=== PATIENT | female | born 1990 | race Caucasian/White ===

== ENCOUNTER → 2020-08-25 | Outpatient (CLI) | payer OTHER ==
[~2020-08-25] MED LIST: ALPR1TAB2 PO; ELAG150T PO; FAMO-119 PO; LISD60CA PO; MIRT-94 PO; PANT40TA2 PO; PREG100C PO; PREG50CA2 PO; TMSL.4C PO; ZOLP12.5 PO
--- NOTE | 2020-08-25 13:40 | Diagnostic Imaging Report ---
EXAMINATION: Supine abdomen at 1:15 p.m. INDICATION: Right ureteral stone. Two supine views were obtained. There are no prior studies available for comparison. FINDINGS: Reportedly, there is a clinical concern regarding a calculus in the right ureter. There is a small 3 mm calcific density lying just to the right of midline in the low pelvis. This could be a stone within the distal right ureter. If previous exams are available, they would be helpful for comparison. There is no other evidence for urolithiasis or for nephrolithiasis. The right kidney, however, is obscured by bowel gas and fecal material. There is no acute abnormality of the abdomen noted. IMPRESSION: 1. There is a small calcific density low in the pelvis on the right. This may represent a ureteral stone. If there are previous studies available for comparison, they would be helpful. 2. There is no acute abnormality noted otherwise. Dictated by: Dictated on workstation # [id number]
== END ==
LOC: RAD 12:53
PROVIDERS: ATTEND Urology
DX: N20.1 Calculus of ureter (principal)
CPT/HCPCS: 74018

== ENCOUNTER 2020-08-26 06:17 | Outpatient (CLI) | payer OTHER ==
[~2020-08-26] VITALS: Ht 162.6 cm; Wt 111.4 kg
[2020-08-26] MEDS ORDERED: TMSL.4C PO (09:21)
[2020-08-26] MEDS ORDERED: PREG100C PO (09:21)
[2020-08-26] MEDS ORDERED: PANT40TA2 PO (09:21)
[2020-08-26] MEDS ORDERED: PREG50CA2 PO (09:21)
[2020-08-26] MEDS ORDERED: FAMO-119 PO (09:21)
[2020-08-26] MEDS ORDERED: MIRT-94 PO (09:21)
[2020-08-26] MEDS ORDERED: LISD60CA PO (09:21)
[2020-08-26] MEDS ORDERED: ELAG150T PO (09:21)
[2020-08-26] MEDS ORDERED: ZOLP12.5 PO (09:21)
[2020-08-26] MEDS ORDERED: ALPR1TAB2 PO (09:22)
== END 2020-08-26 10:14 | disposition home or self-care (01) ==
LOC: PREOP 06:17
PROVIDERS: ATTEND Urology
DX: Z01.818 Encounter for other preprocedural examination (principal)

== ENCOUNTER 2020-08-27 06:06 | Day surgery (SDC) | payer OTHER ==
[2020-08-27] VITALS (10 sets, daily range): BP systolic 101–130; BP diastolic 52–92
[~2020-08-27] VITALS: Ht 162 cm; Wt 111.4 kg
[2020-08-27] MEDS: LACTATED RINGERS 1,000 ML IV PRN ×2 (06:52→08:31)
[2020-08-27] MEDS ORDERED: cefTRIAXone 1,000 MG VIAL ONE (06:57)
[2020-08-27] MEDS ORDERED: WATER (STERILE) FOR INJECTION 10 ML ONE (06:58)
[2020-08-27] MEDS ORDERED: FAMOTIDINE 20MG/2ML IV (PEPCID) IVP ONE (07:00)
[2020-08-27] MEDS ORDERED: ONDANSETRON 4 MG/2 ML (SDV) Z0FRAN IVP ONE (07:00)
[2020-08-27] MEDS ORDERED: cefTRIAXone 1,000 MG in WATER (STERILE) FOR INJECTION 10 ML IV ONE (07:00)
[2020-08-27] MEDS ORDERED: SCOPOLAMINE 1.5 MG (TRANSDERM-SCOP) PATCH TD ONE (07:00)
[2020-08-27] MEDS ORDERED: FAMOTIDINE 20MG/2ML IV (PEPCID) ONE (07:04)
[2020-08-27] MEDS ORDERED: ONDANSETRON 4 MG/2 ML (SDV) Z0FRAN ONE ×2 (07:04→07:06)
[2020-08-27] MEDS ORDERED: SCOPOLAMINE 1.5 MG (TRANSDERM-SCOP) PATCH ONE (07:04)
[2020-08-27] MEDS ORDERED: MIDAZOLAM 2 MG/2 ML (VERSED) VIAL ONE (07:06)
[2020-08-27] MEDS ORDERED: fentaNYL INJ 100 MCG/2 ML AMP ONE ×2 (07:06→09:05)
[2020-08-27] MEDS ORDERED: proPOfol 200 MG/20 ML (DIPRIVAN) VIAL IV ONE (07:06)
[2020-08-27] MEDS ORDERED: NEOSTIGMINE 3 MG/3 ML VIAL ONE (07:06)
[2020-08-27] MEDS ORDERED: GLYCOPYRROLATE 0.2 MG/ML (ROBINUL) 2 ML VIAL ONE (07:06)
[2020-08-27] MEDS ORDERED: LIDOCAINE PF 2% 5 ML (XYLOCAINE) VIAL ONE (07:06)
[2020-08-27] MEDS ORDERED: ROCURONIUM 10 MG/ML 5 ML SYRINGE IV ONE (07:06)
[2020-08-27] MEDS ORDERED: PROPOFOL INJECTION 50 ML IV ONE (07:07)
--- NOTE | 2020-08-27 07:19 | Progress Note-Pre Operative ---
Pre-Operative Progress Note H&P Reviewed The H&P was reviewed, patient examined and no changes noted. Date Seen by Provider: Aug 27, 2020 Time Seen by Provider: 07:18 Date H&P Reviewed: Aug 27, 2020 Time H&P Reviewed: 07:18 Pre-Operative Diagnosis: RT DISTAL URETERAL STONE JUDY HACKETT MD Aug 27, 2020 07:18
--- NOTE | 2020-08-27 07:19 | Progress Note-Post Operative ---
Post-Operative Progess Note Surgeon (s)/Manager Card (s) Surgeon JUDY HACKETT MD Manager Card: NONE Pre-Operative Diagnosis RT DISTAL URETERAL STONE Post-Operative Diagnosis SAME Procedure & Operative Findings Date of Procedure 08/27/20 Procedure Performed/Findings CYSTOSCOPY AND RT URETEROSCOPY Anesthesia Type GENERAL Estimated Blood Loss Estimated blood loss (mL): NONE Specimens/Packing Specimens Removed NONE Packing: NONE JUDY HACKETT MD Aug 27, 2020 07:19
--- NOTE | 2020-08-27 07:20 | Discharge Inst-Urology ---
Discharge Inst-Urology Reconcile Patient Problems Problems Reviewed?: Yes Final Diagnosis RT DISTAL URETERAL STONE Patient Instructions/Follow Up Plan/Assessment/Instructions No appointment needed, see me PRN. Increase oral fluids for 48 hours and then as needed. Diet and Activity as tolerated. If questions or concerns contact your physician Or seek help at emergency department. JUDY HACKETT MD Aug 27, 2020 07:20
--- NOTE | 2020-08-27 07:21 | Diagnostic Imaging Report ---
INDICATION: History of kidney stones. Preoperative evaluation. COMPARISON: 08/25/2020 FINDINGS: 2 supine radiographic views of the abdomen were obtained. Small bowel loops are nondistended. There is no large collection of free intraperitoneal air. No unexpected radiopaque foreign bodies are seen. Note is again made of 2 to 3 mm calculus projecting over the right hemipelvis. Osseous structures show no gross acute abnormalities. IMPRESSION: 1. Stable exam of the abdomen as above. Dictated by: Dictated on workstation # [id number]
[2020-08-27] MEDS ORDERED: PROMETHAZINE INJ 25 MG/ML (PHENERGAN) AMP ONE (08:13)
[2020-08-27] MEDS ORDERED: morphine INJ 10 MG/ML 1ML (SYR OR VIAL) ONE (08:13)
[2020-08-27] MEDS ORDERED: morphine INJ 10 MG/ML 1ML (SYR OR VIAL) IVP ONE (08:15)
[2020-08-27] MEDS ORDERED: ONDANSETRON 4 MG/2 ML (SDV) Z0FRAN IVP PRN (08:15)
[2020-08-27] MEDS ORDERED: PROMETHAZINE INJ 25 MG/ML (PHENERGAN) AMP IVP ONE (08:15)
[2020-08-27] MEDS ORDERED: KETOROLAC 30 MG/ML VIAL ONE (08:24)
[2020-08-27] MEDS ORDERED: KETOROLAC 30 MG/ML VIAL IVP ONE (08:30)
[2020-08-27] MEDS ORDERED: fentaNYL INJ 100 MCG/2 ML AMP IVP ONE (08:30)
[2020-08-27] MEDS ORDERED: fentaNYL INJ 100 MCG/2 ML AMP IVP PRN (09:00)
--- NOTE | 2020-08-27 11:24 | Anesthesia-General Post-Op ---
General Patient Condition Mental Status/LOC: Same as Preop Cardiovascular: Satisfactory Nausea/Vomiting: Absent Respiratory: Satisfactory Pain: Controlled Complications: Absent Post Op Complications Complications None Follow Up Care/Instructions Patient Instructions None needed. Anesthesia/Patient Condition Patient Condition Patient was seen this morning after the procedure and she was doing well, stable vital signs, no apparent adverse anesthesia problems. She did have some minimal N/V after, however she stated that it was much better than previous anesthetics. HILDA VILLALPANDO DO Aug 27, 2020 11:24
--- NOTE | 2020-08-27 13:24 | OPERATIVE REPORT ---
DATE OF SERVICE: 08/27/2020 PREOPERATIVE DIAGNOSIS: Right distal ureteral stone. POSTOPERATIVE DIAGNOSIS: Right distal ureteral stone. OPERATION PERFORMED: Cystoscopy and right ureteroscopy. SURGEON: Refugio Hackett MD ANESTHESIA: General. COMPLICATIONS: None. DESCRIPTION OF PROCEDURE: Under satisfactory general anesthesia, the patient in lithotomy position, genitalia were prepped and draped in the usual sterile fashion. Cystoscope was introduced in the bladder, which was examined and completely normal. No foreign body, bladder stone visualized. No bladder tumor. Clear effluxes equal from both sides. Using the foroblique lens, I dilated the right ureteral orifice intramural portion to accommodate a 6.9 [place] semi-rigid ureteroscope. I went all the way up to the kidney back down twice and there were no stones, no evidence of a stone previously there and showed on fluoroscopy that the calcification that was presumed to be a stone by CT and/or a KUB was outside the ureter, probably a phlebolith. I removed the ureteroscope, reinserted the cystoscope to empty the bladder. The patient tolerated the procedure and anesthesia well and was sent to recovery room in stable condition. I explained to her mother that the possibility either that she did not have a stone to start with and that calcification seen by CAT scan and KUB as I mentioned is outside the ureter since also the CAT scan did not show any obstruction and her urinalysis at the office was negative. The second possibility would have been that she had a stone and she passed it, although I could not see any evidence of that endoscopically, but she has never strain her urine or given a strainer from the ER in [place] so that is another possibility that she has passed the stone few days ago and that is why there are no changes actually now, but that could not explain why she is having pain and nausea and vomiting, so I told her mother that if she continues to have those symptoms after today to check with her medical doctor, I presume Dr. Carcamo in [place] to check for other reasons likely GI tract including the gallbladder. Job ID: [id number] DocumentID: [id number] Dictated Date: 08/27/2020 08:12:25 Low Heel Builder Date: 08/27/2020 13:23:36 Dictated By: REFUGIO HACKETT MD
== END 2020-08-27 10:30 ==
LOC: SDC 06:06
PROVIDERS: ATTEND Urology
DX: N20.1 Calculus of ureter (principal); E66.01 Morbid (severe) obesity due to excess calories; J45.909 Unspecified asthma, uncomplicated; K21.9 Gastro-esophageal reflux disease without esophagitis; F90.9 Attention-deficit hyperactivity disorder, unspecified type; F41.9 Anxiety disorder, unspecified; Z79.899 Other long term (current) drug therapy; Z68.41 Body mass index [BMI] 40.0-44.9, adult; Z83.3 Family history of diabetes mellitus; Z80.0 Family history of malignant neoplasm of digestive organs
CPT/HCPCS: 74018; 76000; 84703; 87081

== ENCOUNTER 2021-06-30 12:17 | Observation (INO) | payer OTHER ==
[~2021-06-30] VITALS: Ht 162 cm; Wt 102.0 kg
[2021-06-30] MEDS ORDERED: NS IV 1000 ML 1,000 ML IV STA (12:46)
[2021-06-30] MEDS ORDERED: fentaNYL INJ 100 MCG/2 ML AMP IVP STA (12:46)
--- NOTE | 2021-06-30 12:51 | ED GI ---
General Chief Complaint: Abdominal/GI Problems Stated Complaint: N/V, ABD PAIN Nursing Triage Note: ARRIVED VIA AMB TO ROOM 08 WITH COMPLAINTS OF LEFT FLANK PAIN AND RIGHT LOWER ABD PAIN. STATES SHE WAS ADMITTED TO [facility] OVER THE WEEKEND FOR PYLONEPHRITIS. CONTINUES TO HAVE ABD PAIN, N/V. WAS TOLD TO COME TO THIS HOSPITAL EDY HACKETT IS HERE. Source of Information: Patient Exam Limitations: No Limitations (JOHNSON MADRID) History of Present Illness Date Seen by Provider: June 30, 2021 Time Seen by Provider: 12:48 Initial Comments Patient is a 30-year-old female with a history of PCOS, anxiety, PE, appendectomy, cholecystectomy, gastric bypass who presents ED for bilateral flank pain and lower belly pain. Symptoms started last . She states she was admitted to [facility] over the weekend for pyelonephritis. She was placed on oral Cipro as she states she was feeling some what better. She states over the past 2 days she has been continuously vomiting. She reports chills with a low-grade temperature. She reports sharp pain in her flank and lower abdomen. No urinary symptoms. Patient is currently on a blood thinner for her PE. Denies chest pain, cough or shortness of breath, headache, sore throat. Was recommended by her primary care physician to come to the ED for further evaluation. (JOHNSON MADRID) Allergies and Home Medications Allergies Coded Allergies: dicyclomine (Verified Allergy, Severe, AMS, 06/30/21) metoclopramide (Verified Allergy, Severe, Anaphylaxis, 08/27/20) "BODY LOCKS UP TO WHERE I CAN'T BREATHE." hydroxyzine (Verified Allergy, Unknown, 06/30/21) prochlorperazine (Verified Allergy, Unknown, 06/30/21) red dye (Verified Allergy, Unknown, Itching, 08/27/20) ITCHING AND RASH yellow dye (Verified Allergy, Unknown, Anaphylaxis, 08/27/20) Uncoded Allergies: IV CONTRAST (Allergy, Severe, ITCHING, 06/30/21) Patient Home Medication List Home Medication List Reviewed: Yes (JOHNSON MADRID) Acetaminophen (Tylenol Extra Strength) 500 Mg Tablet, 1,000 MG PO TID, (Reported) Entered as Reported by: JESSA PAZ on 07/01/211228 Last Action: Reviewed Alprazolam (Alprazolam) 1 Mg Tablet, 1 MG PO DAILY PRN for ANXIETY, (Reported) Entered as Reported by: JESSA PAZ on 07/01/211228 Last Action: Reviewed Apixaban (Eliquis) 5 Mg Tablet, 2.5 MG PO BID, (Reported) Entered as Reported by: JESSA PAZ on 07/01/211228 Last Action: Reviewed Ergocalciferol (Vitamin D2) (Vitamin D2) 1,250 Mcg (89951 Unit) Capsule, 1,250 MCG PO , (Reported) Entered as Reported by: BASSEM CHAWLA on 06/30/211948 Last Action: Reviewed Escitalopram Oxalate (Escitalopram Oxalate) 10 Mg Tablet, 10 MG PO DAILY, (Reported) Entered as Reported by: JESSA PAZ on 07/01/211228 Last Action: Reviewed Esomeprazole Magnesium (Esomeprazole Magnesium) 40 Mg Capsule.dr, 40 MG PO DAILY, (Reported) Entered as Reported by: JESSA PAZ on 07/01/211228 Last Action: Reviewed Lisdexamfetamine Dimesylate (Vyvanse) 60 Mg Capsule, 60 MG PO DAILY, (Reported) Entered as Reported by: NICK DORANTES on 08/26/20 0921 Last Action: Reviewed Ondansetron (Ondansetron Odt) 4 Mg Tab.rapdis, 4 MG PO Q6H Prescribed by: WILL DUVALL on 07/01/21 1753 Oxycodone HCl (Oxycodone HCl) 5 Mg Tablet, 5 MG PO Q6H PRN for PAIN-SEVERE (8- 10) Prescribed by: WILL DUVALL on 07/03/21 1541 Promethazine HCl (Promethazine Tablet) 25 Mg Tablet, 25 MG PO Q6H PRN for NAUSEA/VOMITING Prescribed by: WILL DUVALL on 07/03/21 1540 Scopolamine (Transderm-Scop) 1 Mg/3 Day Patch.td72, 1 EACH TD Q72H Prescribed by: WILL DUVALL on 07/03/21 1540 Zolpidem Tartrate (Ambien) 10 Mg Tablet, 10 MG PO HS, (Reported) Entered as Reported by: JESSA PAZ on 07/01/211228 Last Action: Reviewed Discontinued Medications Alprazolam (Xanax) 1 Mg Tablet, 1 MG PO DAILY PRN for ANXIETY, (Reported) Discontinued Reason: Duplicate Order Entered as Reported by: NICK DORANTES on 08/26/20921 Last Action: Discontinued Apixaban (Eliquis) 2.5 Mg Tablet, 2.5 MG PO BID, (Reported) Discontinued Reason: No Longer Taking Entered as Reported by: HELENA ARMSTRONG on 06/30/211817 Last Action: Discontinued Ciprofloxacin HCl (Ciprofloxacin HCl) 500 Mg Tablet, 500 MG PO BID, (Reported) Entered as Reported by: JESSA PAZ on 07/01/211228 Last Action: Reviewed Elagolix Sodium (Orilissa) 150 Mg Tablet, 150 MG PO HS, (Reported) Discontinued Reason: No Longer Taking Entered as Reported by: NICK DORANTES on 08/26/20920 Last Action: Discontinued Escitalopram Oxalate (Lexapro) 10 Mg Tablet, 10 MG PO DAILY, (Reported) Discontinued Reason: Duplicate Order Entered as Reported by: BASSEM CHAWLA on 06/30/211946 Last Action: Discontinued Esomeprazole Magnesium (Nexium 24Hr) 20 Mg Capsule.dr, 40 MG PO DAILY, (Reported) Discontinued Reason: Duplicate Order Entered as Reported by: BASSEM CHAWLA on 06/30/211946 Last Action: Discontinued Famotidine (Pepcid) 20 Mg Tablet, 20 MG PO HS, (Reported) Discontinued Reason: No Longer Taking Entered as Reported by: NICK DORANTES on 08/26/20920 Last Action: Discontinued Mirtazapine (Remeron) 30 Mg Tablet, 30 MG PO HS, (Reported) Discontinued Reason: No Longer Taking Entered as Reported by: NICK DORANTES on 08/26/20920 Last Action: Discontinued Pantoprazole Sodium (Protonix) 40 Mg Tablet.dr, 40 MG PO BID, (Reported) Discontinued Reason: No Longer Taking Entered as Reported by: NICK DORANTES on 08/26/20920 Last Action: Discontinued Pregabalin (Lyrica) 50 Mg Capsule, 50 MG PO DAILY, (Reported) Discontinued Reason: No Longer Taking Entered as Reported by: NICK DORANTES on 08/26/20920 Last Action: Discontinued Pregabalin (Lyrica) 100 Mg Capsule, 100 MG PO HS, (Reported) Discontinued Reason: No Longer Taking Entered as Reported by: NICK DORANTES on 08/26/20920 Last Action: Discontinued Tamsulosin HCl (Flomax) 0.4 Mg Cap, 0.4 MG PO HS, (Reported) Discontinued Reason: No Longer Taking Entered as Reported by: NICK DORANTES on 08/26/20920 Last Action: Discontinued Zolpidem Tartrate (Ambien Cr) 12.5 Mg Tab.mphase, 12.5 MG PO HS PRN for SLEEP, (Reported) Discontinued Reason: No Longer Taking Entered as Reported by: NICK DORANTES on 08/26/20920 Last Action: Discontinued Zolpidem Tartrate (Ambien) 10 Mg Tablet, 5 MG PO 0000 PRN for INSOMNIA, (Reported) Entered as Reported by: HELENA ARMSTRONG on 06/30/211816 Last Action: Reviewed Review of Systems Review of Systems Constitutional: No chills, No diaphoresis, No malaise, No weakness EENTM: No Eye Pain, No Mouth Pain Respiratory: Denies Cough, Denies Orthopnea Cardiovascular: Denies Chest Pain, Denies Edema Gastrointestinal: Abdominal Pain; Denies Constipated, Denies Diarrhea; Nausea, Vomiting Genitourinary: Denies Burning, Denies Discharge, Denies Flank Pain; Pain; Denies Urgency Musculoskeletal: back pain; No joint pain Skin: No change in color, No change in hair/nails (JOHNSON MADRID) All Other Systems Reviewed Negative Unless Noted: Yes (JOHNSON MADRID) Past Ugkmxzh-Ejxczl-Lhlliz Hx Seasonal Allergies Seasonal Allergies: Yes (JOHNSON MADRID) Past Medical History Surgeries: Yes (GASTRIC SLEEVE, LEFT SHOULDER ) Abdominal, Section, Gallbladder, Orthopedic, Tonsillectomy, Tubal Ligation Respiratory: Yes Asthma Currently Using CPAP: No Currently Using BIPAP: No Cardiac: No Neurological: No Female Reproductive Disorders: Polycystic 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 oz. kg; 38.00 BMI Method: General Appearance: WD/WN, no apparent distress HEENT: PERRL/EOMI, normal ENT inspection, TMs normal, pharynx normal Neck: non-tender, full range of motion, supple Respiratory: chest non-tender, lungs clear, normal breath sounds, no respiratory distress Cardiovascular: regular rate, rhythm, no edema, no gallop, no JVD Gastrointestinal: normal bowel sounds, soft, no organomegaly, tenderness (Bilateral lower abdominal tenderness.) Extremities: normal range of motion, non-tender, normal inspection, no pedal edema Back: normal inspection, CVA tenderness (R), CVA tenderness (L) Neurologic/Psychiatric: 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 II-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 nml as tested, no motor/sensory deficits, alert, normal mood/affect, oriented x 3 Skin: normal color, warm/dry (JOHNSON MADRID) Progress/Results/Core Measures Results/Orders Lab Results Laboratory Tests Test 06/30/21 12:50 06/30/21 12:53 Range/Units Urine Color RED H Urine Clarity CLEAR Urine pH 8.0 5-9 Urine Specific [place] 1.015 L 1.016-1.022 Urine Protein TRACE H NEGATIVE Urine Glucose (UA) NEGATIVE NEGATIVE Urine Ketones NEGATIVE NEGATIVE Urine Nitrite NEGATIVE NEGATIVE Urine Bilirubin NEGATIVE NEGATIVE Urine Urobilinogen 1.0 < = 1.0 MG/DL Urine Leukocyte Esterase NEGATIVE NEGATIVE Urine RBC (Auto) 3+ H NEGATIVE Urine RBC TNTC H /HPF Urine WBC 0-2 /HPF Urine Squamous Epithelial Cells 0-2 /HPF Urine Crystals NONE /LPF Urine Bacteria NEGATIVE /HPF Urine Casts NONE /LPF Urine Mucus NEGATIVE /LPF Urine Culture Indicated NO Urine Test NEGATIVE NEGATIVE White Blood Count 6.5 4.3-11.0 10^3/uL Red Blood Count 4.96 3.80-5.11 10^6/uL Hemoglobin 13.5 11.5-16.0 g/dL Hematocrit 42 35-52 % Mean Corpuscular Volume 84 80-99 fL Mean Corpuscular Hemoglobin 27 25-34 pg Mean Corpuscular Hemoglobin Concent 32 32-36 g/dL Red Cell Distribution Width 14.9 H 10.0-14.5 % Platelet Count 303 130-400 10^3/uL Mean Platelet Volume 10.9 9.0-12.2 fL Immature Granulocyte % (Auto) 0 % Neutrophils (%) (Auto) 61 42-75 % Lymphocytes (%) (Auto) 31 12-44 % Monocytes (%) (Auto) 7 0-12 % Eosinophils (%) (Auto) 0 0-10 % Basophils (%) (Auto) 1 0-10 % Neutrophils # (Auto) 4.0 1.8-7.8 10^3/uL Lymphocytes # (Auto) 2.0 1.0-4.0 10^3/uL Monocytes # (Auto) 0.5 0.0-1.0 10^3/uL Eosinophils # (Auto) 0.0 0.0-0.3 10^3/uL Basophils # (Auto) 0.0 0.0-0.1 10^3/uL Immature Granulocyte # (Auto) 0.0 0.0-0.1 10^3/uL Sodium Level 142 135-145 MMOL/L Potassium Level 3.2 L 3.6-5.0 MMOL/L Chloride Level 102 98-107 MMOL/L Carbon Dioxide Level 28 21-32 MMOL/L Anion Gap 12 5-14 MMOL/L Blood Urea Nitrogen 5 L 7-18 MG/DL Creatinine 0.81 0.60-1.30 MG/DL Estimat Glomerular Filtration Rate 100 BUN/Creatinine Ratio 6 Glucose Level 97 70-105 MG/DL Calcium Level 10.1 8.5-10.1 MG/DL Corrected Calcium 8.5-10.1 MG/DL Total Bilirubin 1.0 0.1-1.0 MG/DL Aspartate Amino Transf (AST/SGOT) 18 5-34 U/L Alanine Aminotransferase (ALT/SGPT) 69 H 0-55 U/L Alkaline Phosphatase 112 40-136 U/L C-Reactive Protein High Sensitivity 0.10 0.00-0.50 MG/DL Total Protein 8.2 6.4-8.2 GM/DL Albumin 4.8 H 3.2-4.5 GM/DL Lipase 13 8-78 U/L Procalcitonin 0.12 H <0.10 NG/ML (YU REA DO) Vital Signs/I&O 06/30/21 12:30 Temp 36.3 Pulse 81 Resp 16 B/P (MAP) 131/96 (108) Pulse Ox 98 O2 Delivery Room Air (YU REA DO) Blood Pressure Mean: 108 Departure Communication (Admissions) Time/Spoke to Admitting Phy: 15:42 Patient will be admitted to Dr. Duvall for intractable vomiting (JOHNSON MADRID) Communication (PCP) Patient with a history of gastric bypass, cholecystectomy who presents ED for bilateral flank pain lower abdominal pain. Was recently admitted to [facility] for [facility]elonephritis. She was discharged over the weekend and started having similar type pain over the past 2 days. Has not been able to eat or drink secondary to abd pain and vomiting. Has bilateral flank pain and bilateral lower abdominal discomfort. Patient with stable vital signs. Multiple rounds of nausea medication without any improvement. Was given a liter of fluid and several rounds of pain medication without much improvement of her pain. CT of the pelvis showed a possible liver lesion containing fat needs further evaluation other torres unremarkable. Urinalysis with hematuria without evidence of infection. Discussed patient with Dr. Ryan her primary care physician. If not able to tolerate p.o. fluids recommend admission. Patient continued to vomit here in the ED. Patient will be admitted for intractable abdominal pain and vomiting. May be related to the Cipro that she has been taking for the UTI versus her complications of the gastric bypass. Discussed patient with Dr. Duvall who accepts patient at this time. (JOHNSON MADRID) Impression Primary Impression: Intractable vomiting Disposition: ADMITTED INPATIENT Condition: Critical Admissions Decision to Admit Reason: Admit from ER (General) Decision to Admit/Date: June 30, 2021 Time/Decision to Admit Time: 15:42 (JOHNSON MADRID) Departure-Patient Inst. Referrals: NITA RYAN MD (PCP/Family) Primary Care Physician Scripts Scopolamine (Transderm-Scop) 1 Mg/3 Day Patch.td72 1 EACH TD Q72H for 7 Days, #3 PATCH Prov: WILL DUVALL MD 07/03/21 Promethazine HCl (Promethazine Tablet) 25 Mg Tablet 25 MG PO Q6H PRN for NAUSEA/VOMITING for 5 Days, #15 TAB Prov: WILL DUVALL MD 07/03/21 Oxycodone HCl (Oxycodone HCl) 5 Mg Tablet 5 MG PO Q6H PRN for PAIN-SEVERE (8-10) for 5 Days, #10 TAB 0 Refills Prov: WILL DUVALL MD 07/03/21 Ondansetron (Ondansetron Odt) 4 Mg Tab.rapdis 4 MG PO Q6H for Nausea/Vomiting for 5 Days, #20 TAB Prov: WILL DUVALL MD 07/01/21 ATTENDING PHYSICIAN NOTE: I WAS PHYSICALLY PRESENT ER PHYSICIAN, BUT I WAS NOT INVOLVED IN ANY DECISION MAKING OR ANY CARE OF THIS PATIENT. (YU REA DO) JOHNSON MADRID June 30, 2021 12:51 YU REA DO July 05, 2021 02:26
[2021-06-30] MEDS ORDERED: IOHEXOL 350 MG/ML 100 ML (OMNIPAQUE 350) VIAL IV ONE (13:00)
[2021-06-30] MEDS ORDERED: HOLD METFORMIN - RECEIVED CONTRAST 20 ML VIAL IV SCH (13:00)
[2021-06-30] MEDS ORDERED: ONDANSETRON 4 MG/2 ML (SDV) Z0FRAN IVP ONE ×2 (13:00→13:45)
[2021-06-30] MEDS ORDERED: NS 100 ML (IVPB) BAG IV ONE (13:00)
[2021-06-30] MEDS ORDERED: CATHETER FLUSH 10 ML SYR IV PRN (13:00)
[2021-06-30 13:04] LABS: BASOPHILS % (AUTO) 1 % (0-10); EOSINOPHILS % (AUTO) 0 % (0-10); HEMATOCRIT 42 % (35-52); HEMOGLOBIN 13.5 g/dL (11.5-16.0); LYMPHOCYTES % (AUTO) 31 % (12-44); MEAN CORPUSCULAR HEMOGLOBIN 27 pg (25-34); MEAN CORPUSCULAR HGB CONC 32 g/dL (32-36); MEAN CORPUSCULAR VOLUME 84 fL (80-99); MEAN PLATELET VOLUME 10.9 fL (9.0-12.2); MONOCYTES # (AUTO) 0.5 10^3/uL (0.0-1.0); MONOCYTES % (AUTO) 7 % (0-12); NEUTROPHILS % (AUTO) 61 % (42-75); PLATELET COUNT 303 10^3/uL (130-400); WHITE BLOOD COUNT 6.5 10^3/uL (4.3-11.0)
[2021-06-30 13:04] LABS: BILIRUBIN,URINE NEGATIVE (NEGATIVE); CLARITY,URINE CLEAR; COLOR,URINE RED; GLUCOSE, URINE (UA) NEGATIVE (NEGATIVE); KETONES,URINE NEGATIVE (NEGATIVE); LEUKOCYTE ESTERASE ,URINE NEGATIVE (NEGATIVE); NITRITE,URINE NEGATIVE (NEGATIVE); PROTEIN,URINE TRACE (NEGATIVE)
[2021-06-30 13:20] LABS: ALBUMIN 4.8 GM/DL (3.2-4.5)
[2021-06-30 13:21] LABS: CHLORIDE 102 MMOL/L (98-107); POTASSIUM 3.2 MMOL/L (3.6-5.0); SODIUM 142 MMOL/L (135-145)
[2021-06-30 13:22] LABS: CALCIUM 10.1 MG/DL (8.5-10.1)
[2021-06-30 13:23] LABS: GLUCOSE 97 MG/DL (70-105); TOTAL PROTEIN 8.2 GM/DL (6.4-8.2)
[2021-06-30 13:23] LABS: BACTERIA,URINE NEGATIVE /HPF; RBC,URINE TNTC /HPF; SQUAMOUS EPITHELIAL CELL,UR 0-2 /HPF; WBC,URINE 0-2 /HPF
[2021-06-30 13:24] LABS: CARBON DIOXIDE 28 MMOL/L (21-32)
[2021-06-30 13:26] LABS: ALKALINE PHOSPHATASE 112 U/L (40-136)
[2021-06-30 13:27] LABS: CREATININE SERUM 0.81 MG/DL (0.60-1.30); GFR ESTIMATED 100
[2021-06-30 13:28] LABS: BUN/CREATININE RATIO 6
[2021-06-30 13:29] LABS: ALANINE AMINOTRANSFERASE 69 U/L (0-55)
[2021-06-30 13:30] LABS: LIPASE 13 U/L (8-78)
[2021-06-30] MEDS ORDERED: diphenhydrAMINE 50 MG/ML INJ (BENADRYL) IVP ONE (13:45)
[2021-06-30] MEDS ORDERED: morphine INJ 10 MG/ML 1ML (SYR OR VIAL) IVP ONE ×2 (13:45→16:15)
--- NOTE | 2021-06-30 13:58 | Diagnostic Imaging Report ---
PROCEDURE: CT abdomen and pelvis with contrast. TECHNIQUE: Multiple contiguous axial images were obtained through the abdomen and pelvis after administration of intravenous contrast. Auto Exposure Controls were utilized during the CT exam to meet ALARA standards for radiation dose reduction. All CT scans use one or more of the following dose optimizing techniques: automated exposure control, MA and/or KvP adjustment based on patient size and exam type or iterative reconstruction. DATE: June 30, 2021. COMPARISON: Abdominal radiographs August 27, 2020. INDICATION: 30-year-old female, left flank pain. Right lower quadrant pain. FINDINGS: The visualized portions of the lung bases are clear. The heart is not enlarged. There is no pericardial effusion. The liver is unremarkable in size and contour. There is a low-attenuation lesion in the liver near the ligamentum teres measuring 1.7 cm in size. Internal attenuation is 23 Hounsfield units. This potentially could relate to an area of focal fat, especially given the characteristic location. There is no additional identified liver lesion. The main, right, left portal veins are patent. The gallbladder surgically absent. There is no intrahepatic or extrahepatic bile duct dilation. The main pancreatic duct is not abnormally dilated. Unremarkable appearance of the pancreatic parenchyma. The spleen is normal in size. The adrenal glands are unremarkable. Unremarkable appearance of the renal parenchyma. The urinary collecting systems are not distended. There is no identified renal or ureteral stone. Urinary bladder is unremarkable. Limited CT assessment of the uterus and adnexa is unremarkable. The appendix is unremarkable. There are postoperative changes at the level of the stomach. There are postoperative changes of small bowel. The intestinal tract is not distended. There is no free intraperitoneal air. There is no drainable fluid collection. There is no sizable volume free pelvic fluid. There is no identified abnormally enlarged lymph node in the abdomen or pelvis which meets CT size criteria for adenopathy. There is no identified acute bony abnormality. There are degenerative changes of the spine. IMPRESSION: CT ABDOMEN AND PELVIS. 1. No identified acute abnormality in the abdomen or pelvis. 2. Low-attenuation lesion in the liver adjacent to the ligamentum teres which may relate to an area of focal fat, especially given the characteristic location. Dictated by: Dictated on workstation # [id number]
[2021-06-30] MEDS ORDERED: PROMETHAZINE INJ 25 MG/ML (PHENERGAN) AMP IVP ONE (15:00)
[2021-06-30] MEDS ORDERED: SCOPOLAMINE 1.5 MG (TRANSDERM-SCOP) PATCH TD ONE ×2 (15:45→18:00)
[2021-06-30] MEDS ORDERED: SCOPOLAMINE 1.5 MG (TRANSDERM-SCOP) PATCH ONE ×2 (15:57→17:54)
[2021-06-30] MEDS ORDERED: LACTATED RINGERS 1,000 ML IV ONE (17:54)
[2021-06-30] MEDS ORDERED: ACETAMINOPHEN 325 MG TABLET PO PRN (18:00)
[2021-06-30] MEDS ORDERED: ONDANSETRON 4 MG (ZOFRAN) ORAL DISSOLVE TAB PO PRN (18:00)
[2021-06-30] MEDS ORDERED: MELATONIN 3 MG TABLET PO PRN (18:00)
[2021-06-30] MEDS ORDERED: PROCHLORPERAZINE 10 MG/2ML INJ (COMPAZINE) IV PRN (18:00)
[2021-06-30] MEDS ORDERED: diphenhydrAMINE 25 MG TAB (BENADRYL) PO PRN (18:00)
[2021-06-30] MEDS ORDERED: polyethylene glycoL POWDER 17 GM (MIRALAX) PACK PO PRN (18:00)
[2021-06-30] MEDS ORDERED: ZOLP10TA PO (18:17)
[2021-06-30] MEDS ORDERED: APIX2.5T PO (18:18)
[2021-06-30] MEDS: LACTATED RINGERS 1,000 ML IV SCH (18:19)
[2021-06-30 19:34] VITALS: BP 117/80
[2021-06-30] MEDS ORDERED: ESCI10TA PO (19:47)
[2021-06-30] MEDS ORDERED: ESOM20CA58 PO (19:47)
[2021-06-30] MEDS ORDERED: ERGO1250 PO (19:49)
[2021-06-30] MEDS ORDERED: HYDROmorphone 2 MG/ML VIAL (DILAUDID) IVP PRN (20:15)
[2021-06-30] MEDS ORDERED: APIXABAN 2.5 MG (ELIQUIS) TABLET ONE (21:10)
[2021-06-30] MEDS ORDERED: ZOLPIDEM 5 MG (AMBIEN) TAB ONE (21:10)
[2021-06-30] MEDS ORDERED: HYDROmorphone 2 MG/ML VIAL (DILAUDID) ONE (21:11)
[2021-06-30] MEDS: APIXABAN 2.5 MG (ELIQUIS) TABLET PO SCH (21:16)
[2021-06-30] MEDS: ZOLPIDEM TARTRATE 15 MG PO SCH ×2 (21:18→21:19)
[2021-06-30] MEDS: ONDANSETRON 4 MG/2 ML (SDV) Z0FRAN IV PRN (21:19)
[2021-06-30] MEDS: PROMETHAZINE INJ 25 MG/ML (PHENERGAN) AMP IVP PRN (22:42)
[2021-07-01 00:12] VITALS: BP 124/84
[2021-07-01] MEDS: HYDROmorphone 2 MG/ML VIAL (DILAUDID) IVP PRN ×8 (00:26→18:06)
[2021-07-01] MEDS: LACTATED RINGERS 1,000 ML IV SCH ×2 (02:38→13:40)
[2021-07-01 03:04] VITALS: BP 116/78
[2021-07-01] MEDS: ONDANSETRON 4 MG/2 ML (SDV) Z0FRAN IV PRN ×2 (03:14→13:22)
[2021-07-01] MEDS: diphenhydrAMINE 50 MG/ML INJ (BENADRYL) IVP PRN ×2 (03:15→13:40)
[2021-07-01] MEDS: PROMETHAZINE INJ 25 MG/ML (PHENERGAN) AMP IVP PRN ×3 (05:59→18:06)
[2021-07-01 07:27] VITALS: BP 94/62
[2021-07-01] MEDS: APIXABAN 2.5 MG (ELIQUIS) TABLET PO SCH (08:24)
[2021-07-01] MEDS: ALPRAZolam 1 MG (XANAX) TAB PO PRN ×2 (08:25→15:50)
[2021-07-01] MEDS: ACETAMINOPHEN 325 MG TABLET PO PRN ×2 (08:25→15:50)
[2021-07-01 09:24] LABS: POTASSIUM 3.4 MMOL/L (3.6-5.0)
[2021-07-01 09:25] LABS: CALCIUM 8.8 MG/DL (8.5-10.1)
[2021-07-01 09:29] LABS: CREATININE SERUM 0.77 MG/DL (0.60-1.30)
--- NOTE | 2021-07-01 11:08 | History & Physical-Hospitalist ---
History of Present Illness Source: patient Exam Limitations: no limitations Date Seen 07/01/21 Time Seen by a Provider: 09:50 Attending Physician Eula Duvall MD PCP Chelsea Carcamo MD Referring Physician Date of Admission June 30, 2021 at 15:44 Home Medications & Allergies Home Medications Reviewed patient Home Medication Reconciliation performed by pharmacy medication reconciliations pharmacy picking technician and/or nursing. Patients Allergies have been reviewed. Allergies Allergies Coded Allergies dicyclomine (Verified Allergy, Severe, AMS, 06/30/21) metoclopramide (Verified Allergy, Severe, Anaphylaxis, 08/27/20) "BODY LOCKS UP TO WHERE I CAN'T BREATHE." hydroxyzine (Verified Allergy, Unknown, 06/30/21) prochlorperazine (Verified Allergy, Unknown, 06/30/21) red dye (Verified Allergy, Unknown, Itching, 08/27/20) ITCHING AND RASH yellow dye (Verified Allergy, Unknown, Anaphylaxis, 08/27/20) Uncoded Allergies IV CONTRAST ( Allergy, Severe, ITCHING, 06/30/21) Past [id number] Hx Patient Social History Tobacco Use?: No Use of E-Cig and/or Vaping dev: No Substance use?: No Alcohol Use?: No Pt feels they are or have been: No Seasonal Allergies Seasonal Allergies: Yes Current Status status: No Advance Directives: No Communicates: Verbally Primary Language: [place] Preferred Spoken Language: [place] Is interpretation needed?: No Sensory deficits: Vision impairment Past Medical History Surgeries: Abdominal, Section, Gallbladder, Orthopedic, Tonsillectomy, Tubal Ligation Asthma Currently Using CPAP: No Currently Using BIPAP: No [employer] History: Tubal Ligation Kidney Stones Gastroesophageal Reflux Degenerate Disk Disease ADD/ADHD, Anxiety Psoriasis Blood Disorders: No Physical Exam Physical Exam Vital Signs Vital Signs - First Documented 06/30/21 12:30 Temp 36.3 Pulse 81 Resp 16 B/P (MAP) 131/96 (108) Pulse Ox 98 O2 Delivery Room Air Capillary Refill : Less Than 3 Seconds Height, Weight, BMI Height: '" Weight: lbs. oz. kg; 38.86 BMI Method: Results Results/Procedures Labs Laboratory Tests 06/30/21 12:53 07/01/21 09:05 Patient resulted labs reviewed. EULA DUVALL MD July 01, 2021 11:08
[2021-07-01 11:52] VITALS: BP 97/57
[2021-07-01] MEDS ORDERED: ZOLP10TA PO (12:29)
[2021-07-01] MEDS ORDERED: ACET-2267 PO (12:29)
[2021-07-01] MEDS ORDERED: ESOM40CA52 PO (12:29)
[2021-07-01] MEDS ORDERED: CIPR500T5 PO (12:29)
[2021-07-01] MEDS ORDERED: ALPR1TAB7 PO (12:29)
[2021-07-01] MEDS ORDERED: ESCI-2 PO (12:29)
[2021-07-01] MEDS ORDERED: APIX5TAB PO (12:29)
[2021-07-01 15:44] VITALS: BP 105/65
[2021-07-01] MEDS ORDERED: OXYC5TAB PO (17:53)
[2021-07-01] MEDS ORDERED: ONDA4TAB11 PO (17:53)
[2021-07-01 19:35] VITALS: BP 105/65
[2021-07-01] MEDS ORDERED: ZOLPIDEM 5 MG (AMBIEN) TAB PO SCH (21:00)
--- NOTE | 2021-07-01 21:03 | Discharge Summary ---
Discharge Summary Hospital Course Problems/Dx: (1) Intractable nausea and vomiting Status: Acute Hospital Course Date of Admission: June 30, 2021 at 15:44 Admission Diagnosis : Intractable nausea and vomiting Family Physician/Provider: Chelsea Carcamo MD Date of Discharge: 07/01/21 Discharge Diagnosis: Intractable nausea and vomiting Hospital Course: Stormy Fink is a 30 year old female with H gastric bypass surgery, history of DVT, GERD, anxiety, who presented with intractable nausea and vomiting. She was recently hospitalized at [facility] due to pyelonephritis. She has been on antibiotics since her discharge. Her nausea was unable to be controlled in the ER so she was admitted for observation. She also complained of abdominal and flank pain. Her lab workup was unremarkable. Her UA showed no evidence of active infection with no WBCs and no bacteria, though it did have significant hematuria. She reported that she was on her period and has been having abnormally heavy bleeding for several months. She had a CT which showed no evidence of pyelonephritis, no stones, and no obstruction. Urology was consulted and recommended outpatient follow up. She was discharged home in improved condition. She was given a small prescription for Oxycodone and Zofran. Labs and Pending Lab Test: Laboratory Tests 07/01/21 09:05: Sodium Level 140, Potassium Level 3.4L, Chloride Level 105, Carbon Dioxide Level 26, Anion Gap 9, Blood Urea Nitrogen 6L, Creatinine 0.77, Estimat Glomerular Filtration Rate 106, BUN/Creatinine Ratio 8, Glucose Level 103, Calcium Level 8.8, Magnesium Level 2.0 Home Meds Active Ondansetron Odt (Ondansetron) 4 Mg Tab.rapdis 4 Mg PO Q6H 5 Days Oxycodone HCl 5 Mg Tablet 5 Mg PO Q6H PRN 5 Days Reported Tylenol Extra Strength (Acetaminophen) 500 Mg Tablet 1,000 Mg PO TID Esomeprazole Magnesium 40 Mg Capsule.dr 40 Mg PO DAILY BREAKS OPEN CAPSULE Alprazolam 1 Mg Tablet 1 Mg PO DAILY PRN Escitalopram Oxalate 10 Mg Tablet 10 Mg PO DAILY Eliquis (Apixaban) 5 Mg Tablet 2.5 Mg PO BID TAKES OF A 5MG TAB Ambien (Zolpidem Tartrate) 10 Mg Tablet 10 Mg PO HS Vitamin D2 (Ergocalciferol (Vitamin D2)) 1,250 Mcg (36504 Unit) Capsule 1,250 Mcg PO TU,TH,SA Vyvanse (Lisdexamfetamine Dimesylate) 60 Mg Capsule 60 Mg PO DAILY Assessment/Pt Instructions Take medications as prescribed. Follow up with your PCP and Dr. Starr. Return with intractable pain, intractable nausea and vomiting, or if you feel like you are getting worse. Discharge Planning: >30 minutes discharge planning Discharge Instructions Discharge Diet: No Restrictions Activity as Tolerated: Yes Consultations Urology Discharge Physical Examination Vital Signs Vital Signs Date Time Temp Pulse Resp B/P (MAP) Pulse Ox O2 Delivery O2 Flow Rate FiO2 07/01/21 19:35 36.4 70 18 105/65 97 Room Air General Appearance: No Apparent Distress, Obese HEENT: PERRL/EOMI, Pharynx Normal Respiratory: Lungs Clear, Normal Breath Sounds, No Respiratory Distress Cardiovascular: Regular Rate, Rhythm, No Edema, No Murmur, Normal Peripheral Pulses Gastrointestinal: Normal Bowel Sounds, Soft; No Distended, No Guarding; Tenderness Extremity: Normal Inspection, Non Tender, No Pedal Edema Skin: Normal Color, Warm/Dry Neurologic/Psychiatric: Alert, Oriented x3, No Motor/Sensory Deficits Allergies: Coded Allergies: dicyclomine (Verified Allergy, Severe, AMS, 06/30/21) metoclopramide (Verified Allergy, Severe, Anaphylaxis, 08/27/20) "BODY LOCKS UP TO WHERE I CAN'T BREATHE." hydroxyzine (Verified Allergy, Unknown, 06/30/21) prochlorperazine (Verified Allergy, Unknown, 06/30/21) red dye (Verified Allergy, Unknown, Itching, 08/27/20) ITCHING AND RASH yellow dye (Verified Allergy, Unknown, Anaphylaxis, 08/27/20) Uncoded Allergies: IV CONTRAST (Allergy, Severe, ITCHING, 06/30/21) Discharge Summary Date of Admission June 30, 2021 at 15:44 Date of Discharge July 01, 2021 at 19:37 Discharge Date: July 01, 2021 Discharge Time: 19:37 Admission Diagnosis Intractable nausea and vomiting Consults/Procedures Consulations Urology Discharge Diagnosis (1) Intractable nausea and vomiting Status: Acute WILL DUVALL MD July 01, 2021 21:03
--- NOTE | 2021-07-01 21:28 | CONSULTATION REPORT ---
DATE OF SERVICE: 07/01/2021 ATTENDING PHYSICIAN: Dr. Oquendo. SUMMARY: After reviewing the patient's record at the office and the hospital, this is a 30-year-old white lady known to me previously because of history of intermittent hematuria, a question stone, which was ruled out by right ureteroscopy and a cystoscopy that was also negative on 08/27/2020. She is being admitted with intermittent gross hematuria and nausea and vomiting. Her CAT scan was negative including ALBER torres, she is feeling better now. She has an appointment with me next week at the office, which she has made before this admission. She has multiple medical issues along which DVT and PE. She is on Eliquis. IMPRESSION: History of intermittent gross hematuria. RECOMMENDATIONS: Okay to discharge ALBER torres, keep her appointment next week and we will discuss a repeat cystoscopy with the patient. CC: Eula Oquendo MD - requested, unable to deliver. Job ID: [id number] DocumentID: [id number] Dictated Date: 07/01/2021 17:33:48 Climatology Professor Date: 07/01/2021 21:27:05 Dictated By: JUDY HACKETT MD
[2021-07-03] MEDS ORDERED: SCOP1PAT10 TD (15:40)
[2021-07-03] MEDS ORDERED: OXYC5TAB PO (15:40)
[2021-07-03] MEDS ORDERED: PROM25TA14 PO (15:40)
[2021-07-03] MEDS ORDERED: SCOPOLAMINE PATCH REMOVAL TP SCH (15:45)
== END 2021-07-01 19:37 | disposition home or self-care (01) ==
LOC: EDUNIT# 12:17 → ER 12:18 → 4TH 15:44
PROVIDERS: ADMIT Internal Medicine; ATTEND Internal Medicine
DX: R11.2 Nausea with vomiting, unspecified (principal)
CPT/HCPCS: 74177; 80048; 80053; 81000; 83690; 83735; 84145; 84703 ×2; 85025; 86141; 96361; 96375; 96376; 99284; G0378; 36415; 96374